=== PATIENT | female | born 1990 | race Caucasian/White ===

== ENCOUNTER 2018-01-16 06:24 | Inpatient (IN) | payer OTHER ==
[~2018-01-16] VITALS: Ht 170.2 cm; Wt 84.0 kg
--- NOTE | 2018-01-18 08:23 | PR ---
[facility] [address] [facility] [place], [place] [address] Signed PP Progress Notes Datetime Report Generated by CPN: 01/18/2018 08:23 SUBJECTIVE: [id number] Pain: Within normal limits Nausea/Vomiting: Denies Flatus: No Bowel Movement: No Vital Signs: [id number] Vital Signs: Reviewed; Within Normal Limits EXAM: [id number] Cardiovascular: Not Done Respiratory: Not Done Abdomen/Uterus: Abnormal Lochia: Normal Vulva/Perineum: Abnormal Breasts: Not Done CVA Tenderness: Not Done Extremities: Normal Incision: Not Applicable Progress: Normal Exam Comments: Fundus firm, NT @ U. H/H 11.8/32.7, WBC 25k, plat 217k IMPRESSION/PLAN/PROCEDURES: [id number] Impression: Normal progression Plan: Discharge Other Plans: Rhogam studies pending Procedures: Rhogam Progress Notes: Doing well. She is ready for D/C. Signing Physician: Sarah Tang MD Copies: ~ *Electronically Signed* 01/18/18 0823 SARAH TANG MD PATIENT NAME: ZAINYVES MTZN PROGRESS NOTE DATE OF : 89 PHYSICIAN: SARAH TANG MD RPT #: [id number] REPORT IS CONFIDENTIAL AND NOT TO BE RELEASED WITHOUT AUTHORIZATION
== END 2018-01-18 10:15 | disposition home or self-care (01) | DRG 775 ==
LOC: FBCO 06:24 → FBC 07:20
PROVIDERS: ADMIT Obstetrics & Gynecology
PROC: 10E0XZZ Delivery of Products of Conception, External Approach (ICD-10-PCS; principal; 2018-01-16)
PROC: 0DQR0ZZ Repair Anal Sphincter, Open Approach (ICD-10-PCS; principal; 2018-01-16)
PROC: 3E0R3BZ Introduction of Anesthetic Agent into Spinal Canal, Percutaneous Approach (ICD-10-PCS; 2018-01-16)
PROC: 00HU33Z Insertion of Infusion Device into Spinal Canal, Percutaneous Approach (ICD-10-PCS; 2018-01-16)
DX: O42.02 Full-term premature rupture of membranes, onset of labor within 24 hours of rupture (principal); O70.20 Third degree perineal laceration during delivery, unspecified; Z3A.39 39 weeks gestation of pregnancy; Z37.0 Single live birth
CPT/HCPCS: 01960; 36415; 82565; 82803; 83030; 84450; 84520; 84550; 85025; 85027; 86850; 86900; 86901; 87070; 87075; 87076; 87077; 87185; 87205; J2590; J2790; J2795; J7120

== ENCOUNTER 2021-01-08 04:11 | Inpatient (IN) | payer OTHER ==
--- NOTE | 2021-01-08 08:11 | PR ---
[facility] [address] [facility] [place], [place] [address] Signed Progress Notes IP Datetime Report Generated by ISI: 01/08/2021 08:11 PROGRESS NOTES: [id number] Impression: Arrest of Dilatation/Descent; Reassuring Heart Rate Procedures: Artificial ROM; Sterile Vag Exam Plan: Continue Present Management; Anesthesia Consult VITAL SIGNS: [id number] Vital Signs: Reviewed; Within Normal Limits EXAM: [id number] Dilatation: 5.0 Effacement: 90 Station: -2 Contractions: initially q 6 min, now none MEMBRANES: [id number] Membranes Status: Intact Comments: No progress since last exam but having very few contractions currently since the terb. She is getting more uncomfortable overall. Will have anesthesia consult. Will watch contractions and possibly add pit if AROM not sufficient. FETUS A: [id number] FHR Baseline: 140 Variability: Moderate 6-25bpm Accelerations: 15X15 Decelerations: Variable FHR Category: Category II Presentation: Vertex Comments on Fetus A: decels resolving FETUS B: [id number] Signing Physician: Em Tang MD Copies: ~ *Electronically Signed* 01/08/21810 EM TANG MD PATIENT NAME: YVES PITTMAN PROGRESS NOTE DATE OF : 89 PHYSICIAN: EM TANG MD RPT #: [id number] REPORT IS CONFIDENTIAL AND NOT TO BE RELEASED WITHOUT AUTHORIZATION
--- NOTE | 2021-01-08 08:12 | PR ---
[facility] [address] [facility] [place], [place] [address] Signed Progress Notes IP Datetime Report Generated by ISI: 01/08/2021 08:12 PROGRESS NOTES: [id number] Impression: Arrest of Dilatation/Descent; Reassuring Heart Rate Procedures: Artificial ROM; Sterile Vag Exam Plan: Continue Present Management; Anesthesia Consult VITAL SIGNS: [id number] Vital Signs: Reviewed; Within Normal Limits EXAM: [id number] Dilatation: 5.0 Effacement: 90 Station: -2 Contractions: initially q 6 min, now none MEMBRANES: [id number] Membranes Status: Intact Comments: No progress since last exam but having very few contractions currently since the terb. She is getting more uncomfortable overall. Will have anesthesia consult. Will watch contractions and possibly add pit if AROM not sufficient. FETUS A: [id number] FHR Baseline: 140 Variability: Moderate 6-25bpm Accelerations: 15X15 Decelerations: Variable FHR Category: Category II Presentation: Vertex Comments on Fetus A: decels resolving FETUS B: [id number] Signing Physician: Em Tang MD Copies: ~ *Electronically Signed* 01/08/21811 EM TANG MD PATIENT NAME: YVES PITTMAN PROGRESS NOTE DATE OF : 90 PHYSICIAN: EM TANG MD RPT #: [id number] REPORT IS CONFIDENTIAL AND NOT TO BE RELEASED WITHOUT AUTHORIZATION
--- NOTE | 2021-01-09 09:47 | PR ---
[facility] [address] [facility] [place], [place] [address] Signed PP Progress Notes Datetime Report Generated by CPN: 01/09/2021 09:47 SUBJECTIVE: [id number] Pain: Within Normal Limits Vital Signs: [id number] Vital Signs: Reviewed; Within Normal Limits Cardiovascular: Not Done Respiratory: Not Done Abdomen/Uterus: Abnormal Lochia: Normal Vulva/Perineum: Not Done Breasts: Not Done CVA Tenderness: Not Done Extremities: Normal Incision: Not Applicable Progress: Normal Exam Comments: Fundus firm, NT @ U-2. H/H 11.3/31.5, WBC 10.2, plat 201k IMPRESSION/PLAN/PROCEDURES: [id number] Impression: Normal Progression Plan: Discharge Procedures: Rhogam Progress Notes: Doing well. Her neck and shoulder pain have resolved. She would like to be discharged home today. Signing Physician: Em Tang MD Copies: ~ *Electronically Signed* 01/09/21 0947 EM TANG MD PATIENT NAME: YVES PITTMAN PROGRESS NOTE DATE OF : 90 PHYSICIAN: EM TANG MD RPT #: [id number] REPORT IS CONFIDENTIAL AND NOT TO BE RELEASED WITHOUT AUTHORIZATION
[2021-01-11] MEDS ORDERED: PRENATAL MULTI1 EAC3 PO (13:39)
[2021-01-11] MEDS ORDERED: IRON325 M1 PO (13:39)
[2021-01-11] MEDS ORDERED: HYDROCODON-ACE1 EA10 PO (13:39)
[2021-01-11] MEDS ORDERED: IBUPROFEN600 MG PO (13:40)
[2021-01-11] MEDS ORDERED: TYLENOL EXTRA500 MG PO (13:41)
== END 2021-01-09 13:30 | disposition home or self-care (01) | DRG 807 ==
LOC: FBCO 04:11 → FBC 04:35
PROVIDERS: ADMIT Obstetrics & Gynecology; ATTEND Obstetrics & Gynecology
PROC: 10E0XZZ Delivery of Products of Conception, External Approach (ICD-10-PCS; principal; 2021-01-08)
PROC: 0KQM0ZZ Repair Perineum Muscle, Open Approach (ICD-10-PCS; 2021-01-08)
PROC: 10907ZC Drainage of Amniotic Fluid, Therapeutic from Products of Conception, Via Natural or Artificial Opening (ICD-10-PCS; 2021-01-08)
PROC: 00HU33Z Insertion of Infusion Device into Spinal Canal, Percutaneous Approach (ICD-10-PCS; 2021-01-08)
PROC: 3E0R3BZ Introduction of Anesthetic Agent into Spinal Canal, Percutaneous Approach (ICD-10-PCS; 2021-01-08)
PROC: 3E0R3GC Introduction of Other Therapeutic Substance into Spinal Canal, Percutaneous Approach (ICD-10-PCS; 2021-01-08)
PROC: 3E0234Z Introduction of Serum, Toxoid and Vaccine into Muscle, Percutaneous Approach (ICD-10-PCS; 2021-01-08)
DX: O24.420 Gestational diabetes mellitus in childbirth, diet controlled (principal); Z37.0 Single live birth; Z3A.38 38 weeks gestation of pregnancy; Z20.822 Contact with and (suspected) exposure to COVID-19; O76 Abnormality in fetal heart rate and rhythm complicating labor and delivery; O70.1 Second degree perineal laceration during delivery; O26.893 Other specified pregnancy related conditions, third trimester; Z67.41 Type O blood, Rh negative; O62.1 Secondary uterine inertia; O89.4 Spinal and epidural anesthesia-induced headache during the puerperium
CPT/HCPCS: 01960; 36415; 62273; 83030; 85027; 86850; 86900; 86901; A9270; C9803; J2590; J2790; J2795; J3010; J3105; J7121; U0003